=== PATIENT | female | born 1945 | race Caucasian/White ===

== ENCOUNTER 2017-03-12 11:32 | Day surgery (SDC) | payer BC ==
[~2017-03-12 11:32] MED LIST: IOPIDINE OD ONE; IOPIDINE ONE; MYDRIACYL OD ONE; MYDRIACYL ONE; NEOFRIN OD ONE; NEOFRIN ONE; TETRACAINE 0.5% ONE
[2017-03-12] MEDS ORDERED: IOPIDINE OD ONE (12:01)
[2017-03-12] MEDS ORDERED: NEOFRIN OD ONE (12:01)
[2017-03-12] MEDS ORDERED: MYDRIACYL OD ONE (12:01)
[2017-03-12] MEDS ORDERED: TETRACAINE 0.5% OD ONE (12:53)
[2017-03-12 13:07] VITALS: BP 110/80
--- NOTE | 2017-03-27 14:08 | Operative Report ---
PROCEDURE: Laser retinopexy, right eye. PREOPERATIVE DIAGNOSIS: Retinal tear, right eye. POSTOPERATIVE DIAGNOSIS: Retinal tear, right eye. COMPLICATIONS: None. ANESTHESIA: Topical anesthesia. HOSPITAL COURSE: After informed consent was obtained, the patient was brought into the laser room. Tetracaine eyedrops were placed in the eye. The contact lens was placed into the eye and then using settings of 0.1-second duration 200 millijoules 100-micron spot size, 60 spots were used to encircle the retinal tear. This was done without complications. JOB# [id number] ADDIE/VIDHI
== END 2017-03-12 11:33 | disposition home or self-care (01) ==
LOC: OR 11:32
PROVIDERS: ATTEND Specialist
DX: H33.311 Horseshoe tear of retina without detachment, right eye (principal)